=== PATIENT | female | born 1990 | race African-American/Black ===

== ENCOUNTER 2016-10-11 17:15 | Emergency (ER) | payer OTHER ==
[2016-10-11 17:46] LABS: Bilirubin Negative (Negative); Blood, Urine Negative (Negative); Clarity Clear (Clear); Glucose, Urine (Dipstick) Negative (Negative); Leukocyte Negative (Negative); Nitrite Negative (Negative); Protein, Urine (Dipstick) Negative (Neg-Trace)
[2016-10-11] MEDS ORDERED: Amoxicillin/Potassium Clav 875 MG TAB ONE (18:10)
[2016-10-13 21:54] LABS: Chlamydia by PCR Not Detected (NotDetected); GC by PCR Not Detected (NotDetected)
== END 2016-10-11 18:15 | disposition home or self-care (01) ==
LOC: BURERS 17:29
DX: O86.12 Endometritis following delivery (principal); O99.335 Smoking (tobacco) complicating the puerperium; F17.210 Nicotine dependence, cigarettes, uncomplicated
CPT/HCPCS: 81003; 87070; 87205; 87480; 87491; 87510; 87591; 87660; 99283

== ENCOUNTER 2017-06-14 11:06 | Emergency (ER) | payer SELFPAY | END 2017-06-14 11:22 | disposition home or self-care (01) | LOC: BURERS 11:06 | DX: R11.2 Nausea with vomiting, unspecified (principal); R19.7 Diarrhea, unspecified; F17.210 Nicotine dependence, cigarettes, uncomplicated | CPT/HCPCS: 99283 ==

== ENCOUNTER 2017-10-15 09:29 | Emergency (ER) | payer SELFPAY ==
[2017-10-15] MEDS ORDERED: Ondansetron ODT 4 MG TAB ONE (09:45)
== END 2017-10-15 09:48 | disposition home or self-care (01) ==
LOC: BURERS 09:29
DX: R11.2 Nausea with vomiting, unspecified (principal); F17.210 Nicotine dependence, cigarettes, uncomplicated
CPT/HCPCS: 99283; Q0162

== ENCOUNTER 2018-09-25 06:38 | Emergency (ER) | payer OTHER ==
[2018-09-25] MEDS ORDERED: Metoclopramide HCl 10 MG/2 ML VIAL ONE (07:03)
[2018-09-25] MEDS ORDERED: diphenhydrAMINE 50 MG/ML VIAL ONE (07:03)
[2018-09-25] MEDS ORDERED: Ketorolac Tromethamine 30 MG/ML VIAL ONE (07:03)
== END 2018-09-25 08:10 | disposition home or self-care (01) ==
LOC: BURERS 06:38
DX: G43.909 Migraine, unspecified, not intractable, without status migrainosus (principal); F17.210 Nicotine dependence, cigarettes, uncomplicated
CPT/HCPCS: 96374; 96375; J1200; J1885; J2765

== ENCOUNTER 2019-07-26 17:50 | Emergency (ER) | payer SELFPAY | END 2019-07-26 20:04 | disposition home or self-care (01) | LOC: BURERS 17:50 | DX: J02.8 Acute pharyngitis due to other specified organisms (principal); B97.89 Other viral agents as the cause of diseases classified elsewhere; F17.210 Nicotine dependence, cigarettes, uncomplicated | CPT/HCPCS: 99283 ==

== ENCOUNTER 2020-04-11 20:27 | Emergency (ER) | payer MEDICAID, SELFPAY ==
[2020-04-11 20:57] LABS: Bilirubin Negative (Negative); Blood, Urine Moderate (Negative); Clarity Slightly Cloudy (Clear); Glucose, Urine (Dipstick) Negative (Negative); Ketone, Urine Negative (Negative); Leukocyte Negative (Negative); Nitrite Negative (Negative); Protein, Urine (Dipstick) Negative (Neg-Trace); Specific Gravity, Urine 1.025 (1.005-1.030); Urobilinogen 0.2 mg/dL (Less than 2); pH, Urine 8.5 (5.0-9.0)
[2020-04-11 20:58] LABS: Pregnancy Test - Urine (BHCG) Negative (Negative); Pregu Control Background? CLEAR/WHITE (CLR/WHITE); Pregu Control Bar Appear? YES (CONTROL BAR); Specific Gravity 1.025 (1.002-1.036)
[2020-04-11 21:01] LABS: Bacteria/HPF 1+ HPF (None Seen); Squamous Epithelial 0-3 HPF (0-3); WBC/HPF 0-3 HPF (0-3)
[2020-04-11] MEDS ORDERED: Ondansetron ODT 4 MG TAB ONE (21:04)
[2020-04-12 18:14] LABS: SARS-CoV-2 MS2 Positive; SARS-CoV-2 N Gene Positive; SARS-CoV-2 S Gene Positive; SARS-CoV-2 by NAA DETECTED (NotDetected); SARS-CoV-2 orf1ab Positive
== END 2020-04-11 21:45 | disposition home or self-care (01) ==
LOC: BURERS 20:27
DX: U07.1 COVID-19 (principal); F17.210 Nicotine dependence, cigarettes, uncomplicated
CPT/HCPCS: 81003; 81015; 81025; 87635; 87804; Q0162; U0003

== ENCOUNTER 2020-08-25 17:34 | Emergency (ER) | payer OTHER, SELFPAY | END 2020-08-25 17:59 | disposition home or self-care (01) | LOC: BURERS 17:34 | DX: R19.7 Diarrhea, unspecified (principal); R11.2 Nausea with vomiting, unspecified; F17.210 Nicotine dependence, cigarettes, uncomplicated | CPT/HCPCS: 99283 ==

== ENCOUNTER 2020-09-14 15:15 | Emergency (ER) | payer SELFPAY ==
[2020-09-14] MEDS ORDERED: AMOXicillin 250 MG CAP ONE (15:28)
[2020-09-14] MEDS ORDERED: Ibuprofen 800 MG TAB ONE (15:28)
== END 2020-09-14 15:30 | disposition home or self-care (01) ==
LOC: BURERS 15:15
DX: K02.9 Dental caries, unspecified (principal); F17.210 Nicotine dependence, cigarettes, uncomplicated
CPT/HCPCS: 99282

== ENCOUNTER 2021-01-17 13:49 | Emergency (ER) | payer SELFPAY | END 2021-01-17 14:44 | disposition home or self-care (01) | LOC: BURERS 13:49 | DX: G57.10 Meralgia paresthetica, unspecified lower limb (principal); F17.210 Nicotine dependence, cigarettes, uncomplicated | CPT/HCPCS: 99283 ==

== ENCOUNTER 2021-03-09 10:50 | Emergency (ER) | payer SELFPAY ==
[2021-03-09 11:16] LABS: Bilirubin Negative (Negative); Blood, Urine Trace (Negative); Clarity Turbid (Clear); Glucose, Urine (Dipstick) Negative (Negative); Ketone, Urine Negative (Negative); Leukocyte Large (Negative); Nitrite Negative (Negative); Protein, Urine (Dipstick) 30 mg/dL (Neg-Trace)
[2021-03-09 11:24] LABS: Bacteria/HPF 2+ HPF (None Seen); RBC/HPF 0-3 HPF (0-3); Renal Epithelial 0-3 HPF (None Seen); Squamous Epithelial 0-3 HPF (0-3); Transitional Epithelial 0-3 HPF (None Seen)
[2021-03-09] MEDS ORDERED: Cephalexin 250 MG CAP ONE ×2 (11:47→11:48)
[2021-03-09 11:55] LABS: Pregnancy Test - Urine (BHCG) Negative (Negative); Pregu Control Background? CLEAR/WHITE (CLR/WHITE); Pregu Control Bar Appear? YES (CONTROL BAR)
== END 2021-03-09 11:50 | disposition home or self-care (01) ==
LOC: BURERS 10:50
DX: N39.0 Urinary tract infection, site not specified (principal); F17.210 Nicotine dependence, cigarettes, uncomplicated
CPT/HCPCS: 81003; 81015; 81025; 99283

== ENCOUNTER 2021-04-08 11:12 | Emergency (ER) | payer OTHER, SELFPAY ==
[2021-04-08] MEDS ORDERED: Ketorolac Tromethamine 60 MG/2 ML VIAL ONE (13:00)
== END 2021-04-08 13:11 | disposition home or self-care (01) ==
LOC: BURERS 11:12
DX: S40.011A Contusion of right shoulder, initial encounter (principal); S70.01XA Contusion of right hip, initial encounter; F17.210 Nicotine dependence, cigarettes, uncomplicated; W01.0XXA Fall on same level from slipping, tripping and stumbling without subsequent striking against object, initial encounter
CPT/HCPCS: 72170; 96372; J1885

== ENCOUNTER 2024-02-10 09:41 | Emergency (ER) | payer OTHER, SELFPAY ==
[2024-02-10 10:19] LABS: Pregnancy Test - Urine (BHCG) Negative (Negative); Specific Gravity 1.005 (1.002-1.036)
[2024-02-10 10:20] LABS: Pregu Control Background? CLEAR/WHITE (CLR/WHITE); Pregu Control Bar Appear? YES (CONTROL BAR)
[2024-02-10] MEDS ORDERED: Naproxen 500 MG TAB ONE (10:23)
== END 2024-02-10 11:06 | disposition home or self-care (01) ==
LOC: BURERS 09:41
DX: M53.3 Sacrococcygeal disorders, not elsewhere classified (principal); F17.210 Nicotine dependence, cigarettes, uncomplicated
CPT/HCPCS: 72192; 72220; 81025